=== PATIENT | female | born 1970 | race Caucasian/White ===

== ENCOUNTER 2022-12-24 18:03 | Emergency (ER) | payer BC ==
[2022-12-24] MEDS ORDERED: Ketorolac Tromethamine 30 MG/ML VIAL ONE (18:47)
== END 2022-12-24 19:09 | disposition home or self-care (01) ==
LOC: MADERS 18:03
DX: J02.9 Acute pharyngitis, unspecified (principal); F17.210 Nicotine dependence, cigarettes, uncomplicated; I10 Essential (primary) hypertension; Z79.899 Other long term (current) drug therapy
CPT/HCPCS: 87081; 87430; 96372; 99283; J1885